=== PATIENT | male | born 1990 | race Caucasian/White ===

== ENCOUNTER 2024-01-08 12:51 | Emergency (ER) | payer BC, OTHER | END 2024-01-08 14:07 | disposition home or self-care (01) | LOC: MW.ED 12:51 | DX: T26.62XA Corrosion of cornea and conjunctival sac, left eye, initial encounter (principal); L03.818 Cellulitis of other sites; Z75.8 Other problems related to medical facilities and other health care; X58.XXXA Exposure to other specified factors, initial encounter | CPT/HCPCS: 99283 ==

== ENCOUNTER 2024-01-09 09:26 | Emergency (ER) | payer OTHER ==
[2024-01-09] MEDS: Tetracaine HCl/PF 0.5% 4 ML Bottle EYELF ONE (09:41)
[2024-01-09] MEDS ORDERED: Dexamethasone/Tobramycin 0.1-0.3% Ophth Susp 2.5 ML Bottle EYELF ONE (10:02)
[2024-01-09] MEDS: Dexamethasone/Tobramycin 0.1-0.3% Ophth Susp 5 ML Bottle EYELF ONE (10:29)
== END 2024-01-09 10:50 | disposition home or self-care (01) ==
LOC: MW.ED 09:26
DX: T26.62XA Corrosion of cornea and conjunctival sac, left eye, initial encounter (principal); Z75.8 Other problems related to medical facilities and other health care; Y99.0 Civilian activity done for income or pay
CPT/HCPCS: 99283; A9270-GY; J3490

== ENCOUNTER 2024-11-10 16:08 | Emergency (ER) | payer BC ==
[2024-11-10 16:41] LABS: APPEARANCE,URINE CLEAR; GLUCOSE,URINE NEGATIVE (NEGATIVE); OCCULT BLOOD,URINE NEGATIVE (NEGATIVE)
[2024-11-10] MEDS: cefTRIAXone 1 GM in Lidocaine 1% 2.1 ML IM ONE (17:31)
[2024-11-10 19:30] LABS: C. TRACHOMATIS BY PCR NOT DETECTED; N. GONORRHOEAE BY PCR NOT DETECTED
== END 2024-11-10 18:09 | disposition home or self-care (01) ==
LOC: MW.ED 16:08
DX: N50.811 Right testicular pain (principal); Z79.899 Other long term (current) drug therapy
CPT/HCPCS: 76870; 81003; 87491; 87591; 93976; 96372; 99284; J0696; J2003; 99283